=== PATIENT | male | born 1960 | race Caucasian/White ===

== ENCOUNTER 2019-11-11 08:29 | Day surgery (SDC) | payer MEDICAID ==
[~2019-11-11] VITALS: Ht 179.1 cm; Wt 81.8 kg
[2019-11-11 08:43] VITALS: BP 141/82
[2019-11-11] MEDS ORDERED: fentaNYL/PF 50MCG/1 ML 2ML syringe ONE (08:57)
[2019-11-11] MEDS ORDERED: CALC300T4 PO (08:58)
[2019-11-11] MEDS ORDERED: LIDOcaine Viscous 15ml cup ONE (08:58)
[2019-11-11] MEDS ORDERED: MIDAZolam 5mg/5ml vial ONE (08:58)
[2019-11-11] MEDS ORDERED: PROP10TA10 PO (08:59)
[2019-11-11] MEDS ORDERED: METF-438 PO (09:00)
[2019-11-11] MEDS ORDERED: PANT-47 PO (09:01)
[2019-11-11] MEDS ORDERED: CHOL400T14 PO (09:02)
[2019-11-11] MEDS ORDERED: IRON150C5 PO (09:02)
[2019-11-11] MEDS ORDERED: ONDA4TAB6 PO (09:03)
[2019-11-11 10:39] VITALS: BP 115/73
[2019-11-11 10:48] VITALS: BP 121/84
[2019-11-11 10:58] VITALS: BP 134/67
[2019-11-11 11:08] VITALS: BP 139/83
== END 2019-11-11 11:25 | disposition home or self-care (01) ==
LOC: GI LAB 08:29
PROVIDERS: ATTEND Internal Medicine Gastroenterology
DX: R12 Heartburn (principal); I85.00 Esophageal varices without bleeding; K22.719 Barrett's esophagus with dysplasia, unspecified; K44.9 Diaphragmatic hernia without obstruction or gangrene; K76.6 Portal hypertension; K31.89 Other diseases of stomach and duodenum; I86.4 Gastric varices; K22.70 Barrett's esophagus without dysplasia
CPT/HCPCS: 43239; 99152; J2250; J3010; J7040; A4620

== ENCOUNTER 2020-07-15 11:23 | Emergency (ER) | payer MEDICAID ==
[~2020-07-15] VITALS: Ht 177.8 cm; Wt 79.5 kg
[~2020-07-15 11:23] MED LIST: CALC300T4 PO; CHOL400T14 PO; IRON150C5 PO; METF-438 PO; ONDA4TAB6 PO; PANT-47 PO; PROP10TA10 PO
[2020-07-15 12:42] VITALS: BP 146/98
[2020-07-15] MEDS ORDERED: PERM60CR19 TOP (12:59)
== END 2020-07-15 13:05 | disposition home or self-care (01) ==
LOC: ER 11:24
DX: B86 Scabies (principal); Z88.8 Allergy status to other drugs, medicaments and biological substances; Z79.899 Other long term (current) drug therapy
CPT/HCPCS: 99283

== ENCOUNTER 2021-06-13 14:28 | Emergency (ER) | payer MEDICAID ==
[~2021-06-13] VITALS: Ht 177.8 cm; Wt 73.4 kg
[2021-06-13 14:37] VITALS: BP 129/71
[2021-06-13] MEDS ORDERED: CEPH-585 PO (15:24)
== END 2021-06-13 15:40 | disposition home or self-care (01) ==
LOC: ER 14:29
DX: J93.9 Pneumothorax, unspecified (principal); Z48.02 Encounter for removal of sutures; Z60.2 Problems related to living alone; Z88.6 Allergy status to analgesic agent; Z79.2 Long term (current) use of antibiotics; Z79.899 Other long term (current) drug therapy
CPT/HCPCS: 99283

== ENCOUNTER 2023-03-29 18:52 | Emergency (ER) | payer MEDICAID ==
[~2023-03-29] VITALS: Ht 177.8 cm; Wt 74.8 kg
[~2023-03-29 18:52] MED LIST changes: -CALC300T4 PO; -CHOL400T14 PO; -IRON150C5 PO; -METF-438 PO; -ONDA4TAB6 PO; -PANT-47 PO; -PROP10TA10 PO; +SULF1TAB49 PO
[2023-03-29 18:55] VITALS: BP 134/66
[2023-03-29] MEDS ORDERED: IBUP-1986 PO (20:15)
[2023-03-29] MEDS ORDERED: HYDROcodone/acetaminophen 10/325mg tab PO ONE (20:20)
[2023-03-29] MEDS ORDERED: ibuprofen tablet 400 MG TABLET PO ONE (20:20)
--- NOTE | 2023-03-29 20:44 | NUR ---
ADMISSIONS SUPERVISOR PAGED BY ELANA TOBIAS.
--- NOTE | 2023-03-29 21:10 | NUR ---
PRIMARY CARE NURSE AT BEDSIDE
== END 2023-03-29 21:26 | disposition home or self-care (01) ==
LOC: ER 18:53
DX: S93.492A Sprain of other ligament of left ankle, initial encounter (principal); M25.522 Pain in left elbow; Z88.6 Allergy status to analgesic agent; Z79.899 Other long term (current) drug therapy; X58.XXXA Exposure to other specified factors, initial encounter; Y93.89 Activity, other specified; Y92.89 Other specified places as the place of occurrence of the external cause; Y99.8 Other external cause status
CPT/HCPCS: 29515; 73080; 73610; 99284; L1930; L4360; A4565; A6449

== ENCOUNTER 2023-04-06 07:58 | Emergency (ER) | payer MEDICAID ==
[~2023-04-06] VITALS: Ht 179.1 cm; Wt 81.8 kg
[~2023-04-06 07:58] MED LIST changes: +IBUP-1986 PO
--- NOTE | 2023-04-06 08:09 | NUR ---
YAMILEX [phone]
[2023-04-06] MEDS ORDERED: normal saline 1000ML IV soln IVB ONE ×2 (09:05→09:40)
[2023-04-06] MEDS ORDERED: ondansetron/PF 4mg/2ml inj IV ONE (09:05)
[2023-04-06 09:12] LABS: BASOPHILS # (AUTO) 0.1 X10'3 (0-0.2); BASOPHILS % (AUTO) 0.5 % (0-1); EOSINOPHILS % (AUTO) 0 % (0-6); HEMATOCRIT 41.4 % (42.0-52.0); HEMOGLOBIN 14.1 g/dl (14.0-17.9); LYMPHOCYTES # (AUTO) 0.2 X10'3 (1.1-4.8); LYMPHOCYTES % (AUTO) 1.6 % (21-51); MEAN CORPUSCULAR HEMOGLOBIN 32.9 PG (27.0-31.0); MEAN CORPUSCULAR VOLUME 96.8 FL (78-98); MEAN PLATELET VOLUME 9.4 FL (7.4-10.4); MONOCYTES # (AUTO) 0.2 X10'3 (0-0.9); MONOCYTES % (AUTO) 2.2 % (2-12); NEUTROPHILS # (AUTO) 10.7 X10'3 (1.8-7.7); NEUTROPHILS % (AUTO) 95.7 % (42-75); PLATELET COUNT 108 X10'3 (140-440); RED BLOOD COUNT 4.27 X10'6 (4.70-6.10); RED CELL DISTRIBUTION WIDTH 15.3 % (11.5-14.5); WHITE BLOOD COUNT 11.2 X10'3 (4.5-11.0)
[2023-04-06 09:25] LABS: ALANINE AMINOTRANSFERASE 19 U/L (12-78); ALBUMIN 3.6 G/DL (3.4-5.0); ALKALINE PHOSPHATASE 111 IU/L (46-116); ANION GAP 11 (8-16); ASPARTATE AMINO TRANSFERASE 28 U/L (10-37); BILIRUBIN,TOTAL 1.9 MG/DL (0.1-1.0); BLOOD UREA NITROGEN 17 MG/DL (7-18); BUN/CREATININE RATIO 22.4 (10.0-20.0); CALCIUM 8.7 MG/DL (8.5-10.1); CHLORIDE 104 MMOL/L (99-107); CREATININE 0.76 MG/DL (0.60-1.10); GLUCOSE 285 MG/DL (70-104); LIPASE 83 U/L (73-393); POTASSIUM 3.6 MMOL/L (3.5-5.1); SODIUM 138 MMOL/L (135-145); TOTAL CARBON DIOXIDE 23.4 MMOL/L (24-32); TOTAL PROTEIN 7.2 G/DL (6.4-8.2); eGFR > 90 ML/MIN
[2023-04-06 10:46] LABS: CLARITY,URINE CLEAR (Clear); COLOR,URINE YELLOW (Yellow); GLUCOSE, URINE >=1000 mg/dl (Neg); KETONES,URINE NEGATIVE (Neg); LEUKOCYTE ESTERASE ,URINE NEGATIVE (Neg); NITRITES, URINE NEGATIVE (Neg); OCCULT BLOOD,URINE TRACE-INTACT (Neg); PROTEIN,URINE NEGATIVE (Neg); UROBILINOGEN,URINE 0.2 E.U/dL (0.2-1.0)
[2023-04-06 10:49] LABS: UA COLLECTION TYPE CLN CATCH MIDSTREAM
[2023-04-06 10:50] LABS: BACTERIA,URINE NONE SEEN /HPF (Neg); MUCUS STRANDS NONE SEEN /LPF (Neg); SQUAMOUS EPITHELIAL CELL,UR FEW /LPF (FEW); WBC,URINE 0-4 /HPF (0-4)
[2023-04-06] MEDS ORDERED: diphenhydrAMINE 50 mg/ml inj IV ONE (10:50)
[2023-04-06] MEDS ORDERED: proCHLORperazine 10 MG/2 ml inj IV ONE (10:50)
[2023-04-06] MEDS ORDERED: ONDA4TAB12 PO ×3 (10:54→14:22)
[2023-04-06] MEDS ORDERED: iohexol 300mg/ml 100ml inj. ONE (11:38)
[2023-04-06] MEDS ORDERED: FLO0.4C PO ×3 (13:09→14:22)
[2023-04-06 13:27] VITALS: BP 138/82
[2023-04-06] MEDS ORDERED: tamsulosin 0.4mg capsule PO SCH (21:00)
== END 2023-04-06 13:30 | disposition home or self-care (01) ==
LOC: ER 07:59
DX: K52.89 Other specified noninfective gastroenteritis and colitis (principal); N13.2 Hydronephrosis with renal and ureteral calculous obstruction; Z88.8 Allergy status to other drugs, medicaments and biological substances; Z79.899 Other long term (current) drug therapy; Z79.1 Long term (current) use of non-steroidal anti-inflammatories (NSAID)
CPT/HCPCS: 36415; 74177; 80053; 81001; 82948; 83690; 84145; 85025; 96374; 96375; 99285; J0780; J1200; J2405; J3490; J7030; Q9967

== ENCOUNTER 2023-09-08 19:30 | Inpatient (IN) | payer MEDICAID ==
[~2023-09-08] VITALS: Ht 167.6 cm; Wt 81.8 kg
[~2023-09-08 19:30] MED LIST changes: +FLO0.4C PO; +ONDA4TAB12 PO
[2023-09-08] MEDS ORDERED: piperacillin/tazo 4.5gm/100ml 100 ML IV STA (19:53)
[2023-09-08] MEDS ORDERED: acetaminophen 325mg tablet PO STA (19:53)
[2023-09-08] MEDS ORDERED: normal saline 1000ml 1,000 ML IV ONE ×2 (19:55→20:45)
[2023-09-08 20:19] LABS: BASOPHILS # (AUTO) 0.1 X10'3 (0-0.2); BASOPHILS % (AUTO) 0.3 % (0-1); EOSINOPHILS % (AUTO) 0 % (0-6); HEMATOCRIT 44.5 % (42.0-52.0); HEMOGLOBIN 15.5 g/dl (14.0-17.9); LYMPHOCYTES # (AUTO) 0.3 X10'3 (1.1-4.8); LYMPHOCYTES % (AUTO) 1.3 % (21-51); MEAN CORPUSCULAR HEMOGLOBIN 33.7 PG (27.0-31.0); MEAN CORPUSCULAR HGB CONC 34.7 g/dL (33.0-36.5); MEAN PLATELET VOLUME 9.5 FL (7.4-10.4); MONOCYTES # (AUTO) 1.2 X10'3 (0-0.9); MONOCYTES % (AUTO) 5.9 % (2-12); NEUTROPHILS # (AUTO) 18.7 X10'3 (1.8-7.7); NEUTROPHILS % (AUTO) 92.5 % (42-75); PLATELET COUNT 113 X10'3 (140-440); RED BLOOD COUNT 4.59 X10'6 (4.70-6.10); RED CELL DISTRIBUTION WIDTH 14.5 % (11.5-14.5); WHITE BLOOD COUNT 20.2 X10'3 (4.5-11.0)
[2023-09-08 20:25] LABS: ALANINE AMINOTRANSFERASE 56 U/L (12-78); ALBUMIN 3.4 G/DL (3.4-5.0); ALBUMIN/GLOBULIN RATIO 0.9 (1.1-1.5); ALKALINE PHOSPHATASE 112 IU/L (46-116); ANION GAP 13 (8-16); ASPARTATE AMINO TRANSFERASE 65 U/L (10-37); BILIRUBIN,TOTAL 1.9 MG/DL (0.1-1.0); BLOOD UREA NITROGEN 15 MG/DL (7-18); BUN/CREATININE RATIO 16.7 (10.0-20.0); CALCIUM 9.1 MG/DL (8.5-10.1); CHLORIDE 97 MMOL/L (99-107); GLUCOSE 206 MG/DL (70-104); SODIUM 129 MMOL/L (135-145); TOTAL CARBON DIOXIDE 18.7 MMOL/L (24-32); TOTAL PROTEIN 7.1 G/DL (6.4-8.2); eCRCL 76 ML/MIN; eGFR 85 ML/MIN
[2023-09-08] MEDS ORDERED: vancomycin 1,750 MG in NS 350ml IV soln IV ONE (20:30)
[2023-09-08 20:32] LABS: PRO BRAIN NATRIURETIC PEPTIDE 284 PG/ML (0-125)
[2023-09-08 20:54] LABS: PLATELET ESTIMATE DECREASED; TOTAL CELLS COUNTED 100
[2023-09-08 20:56] LABS: LARGE PLATELETS FEW
[2023-09-08] MEDS ORDERED: temazepam 15mg capsule PO PRN (21:00)
[2023-09-08] MEDS ORDERED: diphenhydrAMINE 50 mg/ml inj IV PRN (21:30)
[2023-09-08] MEDS ORDERED: magnesium hydroxide 30ml (MOM) UD suspension PO PRN (21:30)
[2023-09-08] MEDS ORDERED: acetaminophen 650mg rectal suppository RC PRN (21:30)
[2023-09-08] MEDS ORDERED: HYDROcodone/acetaminophen 5mg/325mg tablet PO PRN (21:30)
[2023-09-08] MEDS ORDERED: morphine 2 MG/ML inj. syringe IV PRN ×2 (21:30)
[2023-09-08] MEDS ORDERED: acetaminophen 325mg tablet PO PRN (21:30)
[2023-09-08] MEDS ORDERED: ipratropium/albuterol 3ml nebule NEB PRN (21:30)
[2023-09-08] MEDS ORDERED: diphenhydrAMINE 25mg capsule PO PRN (21:30)
[2023-09-08] MEDS ORDERED: mag hydrox/Alum hydrox/simeth 30ml oral suspension PO PRN (21:30)
[2023-09-08] MEDS ORDERED: ondansetron/PF 4mg/2ml inj IV PRN (21:30)
[2023-09-08] MEDS ORDERED: ondansetron 4mg rapidly disintigrating tab PO PRN (21:30)
[2023-09-08] MEDS ORDERED: bisacodyl 10mg suppository rectal RC PRN (21:30)
[2023-09-08] MEDS ORDERED: glucagon, human recombinant 1mg kit SUBCUT PRN (21:35)
[2023-09-08] MEDS ORDERED: DEXTROSE 15 GM of carb/4 tabs (each vial/BOTTLE has 4 tablets) PO PRN ×2 (21:35)
[2023-09-08] MEDS ORDERED: dextrose 50%-water 50ml dispensing syringe IV PRN ×2 (21:35)
[2023-09-08] MEDS ORDERED: MESSAGE TO PHARMACY PO ONE (21:35)
[2023-09-08] MEDS ORDERED: ringers solution, lacted 1,000 ML IV ONE (21:45)
[2023-09-08 21:52] LABS: APTT 31 SECONDS (22-32); INR 1.2 INR; PROTHROMBIN TIME 12.5 SECONDS (9.0-12.0)
[2023-09-08 22:03] VITALS: PULSE 109; RESP 24; O2SAT 99
[2023-09-08 22:04] LABS: D-DIMER 0.84 MG/L FEU (0-0.50)
[2023-09-08] MEDS: normal saline 1000ml 1,000 ML IV SCH (23:20)
[2023-09-09 00:02] LABS: HEMOGLOBIN A1C 6.2 % (4.5-6.2)
[2023-09-09 00:13] LABS: OSMOLALITY 281 MOSM/K (280-300)
[2023-09-09 00:19] LABS: C-REACTIVE PROTEIN 3.81 MG/DL (0.0-0.5); CREATINE KINASE 251 U/L (39-308); LIPASE 17 U/L (16-77); MAGNESIUM 1.2 MG/DL (1.5-2.4); PHOSPHORUS 2.4 MG/DL (2.3-4.5); PRO BRAIN NATRIURETIC PEPTIDE 408 PG/ML (0-125)
[2023-09-09 03:17] LABS: BASOPHILS # (AUTO) 0.1 X10'3 (0-0.2); BASOPHILS % (AUTO) 0.6 % (0-1); EOSINOPHILS % (AUTO) 0.1 % (0-6); HEMATOCRIT 41.3 % (42.0-52.0); HEMOGLOBIN 14.3 g/dl (14.0-17.9); LYMPHOCYTES # (AUTO) 0.4 X10'3 (1.1-4.8); LYMPHOCYTES % (AUTO) 1.9 % (21-51); MEAN CORPUSCULAR HEMOGLOBIN 33.7 PG (27.0-31.0); MEAN CORPUSCULAR HGB CONC 34.6 g/dL (33.0-36.5); MEAN CORPUSCULAR VOLUME 97.5 FL (78-98); MEAN PLATELET VOLUME 10.2 FL (7.4-10.4); MONOCYTES # (AUTO) 0.8 X10'3 (0-0.9); MONOCYTES % (AUTO) 4.5 % (2-12); NEUTROPHILS # (AUTO) 17.5 X10'3 (1.8-7.7); NEUTROPHILS % (AUTO) 92.9 % (42-75); PLATELET COUNT 105 X10'3 (140-440); RED BLOOD COUNT 4.24 X10'6 (4.70-6.10); RED CELL DISTRIBUTION WIDTH 14.5 % (11.5-14.5); WHITE BLOOD COUNT 18.9 X10'3 (4.5-11.0)
[2023-09-09 03:34] LABS: ALANINE AMINOTRANSFERASE 48 U/L (12-78); ALBUMIN 2.9 G/DL (3.4-5.0); ALBUMIN/GLOBULIN RATIO 0.9 (1.1-1.5); ALKALINE PHOSPHATASE 85 IU/L (46-116); ANION GAP 11 (8-16); ASPARTATE AMINO TRANSFERASE 55 U/L (10-37); BILIRUBIN,TOTAL 1.8 MG/DL (0.1-1.0); BLOOD UREA NITROGEN 15 MG/DL (7-18); BUN/CREATININE RATIO 14.6 (10.0-20.0); CALCIUM 8.3 MG/DL (8.5-10.1); CHLORIDE 101 MMOL/L (99-107); CHOL/HDL RATIO 1.3 (0.00-4.99); CHOLESTEROL 110 MG/DL (0-200); CREATININE 1.03 MG/DL (0.60-1.10); GLUCOSE 149 MG/DL (70-104); HDL CHOLESTEROL 83 MG/DL (35-60); LDL CHOLESTEROL 21 MG/DL (50-100); POTASSIUM 3.9 MMOL/L (3.5-5.1); SODIUM 134 MMOL/L (135-145); TOTAL CARBON DIOXIDE 22.4 MMOL/L (24-32); TOTAL PROTEIN 6.3 G/DL (6.4-8.2); TRIGLYCERIDES 33 MG/DL (20-135); eCRCL 66 ML/MIN; eGFR 73 ML/MIN
[2023-09-09 05:05] LABS: URINE AMPHETAMINE SCREEN POSITIVE (Neg); URINE BARBITUATE SCREEN NEGATIVE (Neg); URINE BENZODIAZEPINES SCREEN NEGATIVE (Neg); URINE CANNABINOID SCREEN POSITIVE (Neg); URINE COCAINE SCREEN NEGATIVE (Neg); URINE METHADONE SCREEN NEGATIVE (Neg); URINE OPIATE SCREEN NEGATIVE (Neg); URINE PHENCYCLIDINE SCREEN NEGATIVE (Neg)
[2023-09-09 05:17] LABS: BILIRUBIN,URINE NEGATIVE (Neg); CLARITY,URINE CLEAR (Clear); COLOR,URINE YELLOW (Yellow); GLUCOSE, URINE NEGATIVE (Neg); KETONES,URINE NEGATIVE (Neg); LEUKOCYTE ESTERASE ,URINE NEGATIVE (Neg); NITRITES, URINE NEGATIVE (Neg); OCCULT BLOOD,URINE TRACE-INTACT (Neg); PH,URINE 5.5 (4.8-8.0); PROTEIN,URINE NEGATIVE (Neg); UROBILINOGEN,URINE 0.2 E.U/dL (0.2-1.0)
[2023-09-09 05:22] LABS: UA COLLECTION TYPE CLN CATCH MIDSTREAM
[2023-09-09 05:24] LABS: BACTERIA,URINE NONE SEEN /HPF (Neg); MUCUS STRANDS NONE SEEN /LPF (Neg); RBC,URINE NONE SEEN /HPF (0-2); SQUAMOUS EPITHELIAL CELL,UR FEW /LPF (FEW); WBC,URINE 0-4 /HPF (0-4)
[2023-09-09] MEDS: piperacillin/tazo 4.5gm/100ml 100 ML IV SCH ×4 (05:36→20:43)
[2023-09-09] MEDS: pantoprazole 40mg Tablet.DR PO SCH (09:22)
[2023-09-09] MEDS: methylPREDNISolone sod succ 125mg/2ml vial IV SCH ×2 (09:22→20:44)
[2023-09-09] MEDS: heparin, porcine 5000 units/ml vial SQ SCH ×2 (09:27→20:45)
[2023-09-09] MEDS: docusate sod 100mg capsule PO SCH ×2 (09:27→20:00)
[2023-09-09] MEDS: normal saline 1000ml 1,000 ML IV SCH ×3 (09:28→22:25)
[2023-09-09] MEDS: vancomycin/NS 1 GM ADD-VANTAGE 250 ML IV SCH ×2 (09:28→22:22)
--- NOTE | 2023-09-09 12:56 | NUR ---
Valentin Avalos (son) [phone].
[2023-09-09 13:14] VITALS: PULSE 86; RESP 16; O2SAT 94
--- NOTE | 2023-09-09 16:40 | NUR ---
Report received from Zulema PEACOCK
[2023-09-09 17:28] VITALS: BP 112/57; PULSE 75; RESP 18; TEMP 99.2; O2SAT 97
[2023-09-09 18:00] VITALS: BP 112/46; PULSE 85; RESP 18; TEMP 99.5; O2SAT 96
--- NOTE | 2023-09-09 18:09 | NUR ---
Report given to Arelis PEACOCK
[2023-09-09 19:55] VITALS: PULSE 84; RESP 16; O2SAT 99
[2023-09-09] MEDS: insulin glargine (Lantus) pen - multi-dose SQ SCH (21:00)
[2023-09-09] MEDS: HYDROcodone/acetaminophen 10/325mg tab PO PRN (21:20)
[2023-09-09 22:00] VITALS: BP 130/72; PULSE 86; RESP 18; TEMP 99.4; O2SAT 95
--- NOTE | 2023-09-09 23:49 | NUR ---
PAGER ID: [phone] MESSAGE: [facility] [id number]. Herve Rivera. admitted for LLL cellulitis, there is now redness up into groin. Pt currently has vancomycin running, missed 2000 dose zosyn, next dose is at 0400. 2200 VS 99.4,86,18,95,130/72. please advise Arelis PEACOCK [phone]
[2023-09-10] VITALS (9 sets, daily range): BP systolic 112–147; BP diastolic 57–75; PULSE 69–92; RESP 15–18; TEMP 97.8–99.1; O2SAT 92–98
--- NOTE | 2023-09-10 00:24 | NUR ---
Provider Marissa came and looked at pt's left leg as the redness has travelled up his leg and into the groin area. Provider stated to continue to monitor redness and gave orders for stat LA and Procal labs.
--- NOTE | 2023-09-10 02:25 | NUR ---
provider paged PAGER ID: [phone] MESSAGE: [id number], Robel Rivera results of stat labs. procalcitonin went from 3.0 to 4.64 and lactic acid went from 5.1 to 2.0. Thank you, Arelis PEACOCK [phone]
[2023-09-10] MEDS: piperacillin/tazo 4.5gm/100ml 100 ML IV SCH ×3 (03:10→21:35)
--- NOTE | 2023-09-10 06:33 | NUR ---
Problems reprioritized. Patient report given, questions answered & plan of care reviewed with Alexandra PEACOCK and Ria PEACOCK. Pt stable at shift change.
[2023-09-10] MEDS: pantoprazole 40mg Tablet.DR PO SCH (07:41)
[2023-09-10] MEDS: vancomycin/NS 1 GM ADD-VANTAGE 250 ML IV SCH ×2 (07:52→21:35)
[2023-09-10] MEDS: methylPREDNISolone sod succ 125mg/2ml vial IV SCH (07:56)
[2023-09-10] MEDS: heparin, porcine 5000 units/ml vial SQ SCH ×2 (08:00→20:00)
[2023-09-10] MEDS: docusate sod 100mg capsule PO SCH (08:00)
[2023-09-10 08:46] LABS: BASOPHILS % (AUTO) 0.1 % (0-1); EOSINOPHILS % (AUTO) 0 % (0-6); HEMATOCRIT 38.3 % (42.0-52.0); HEMOGLOBIN 13.3 g/dl (14.0-17.9); LYMPHOCYTES # (AUTO) 0.5 X10'3 (1.1-4.8); LYMPHOCYTES % (AUTO) 3.6 % (21-51); MEAN CORPUSCULAR HEMOGLOBIN 33.8 PG (27.0-31.0); MEAN CORPUSCULAR HGB CONC 34.6 g/dL (33.0-36.5); MEAN CORPUSCULAR VOLUME 97.7 FL (78-98); MEAN PLATELET VOLUME 10.1 FL (7.4-10.4); MONOCYTES # (AUTO) 0.9 X10'3 (0-0.9); MONOCYTES % (AUTO) 7.2 % (2-12); NEUTROPHILS # (AUTO) 11.7 X10'3 (1.8-7.7); NEUTROPHILS % (AUTO) 89.1 % (42-75); PLATELET COUNT 87 X10'3 (140-440); RED BLOOD COUNT 3.92 X10'6 (4.70-6.10); RED CELL DISTRIBUTION WIDTH 14.6 % (11.5-14.5); WHITE BLOOD COUNT 13.1 X10'3 (4.5-11.0)
[2023-09-10 09:10] LABS: ALANINE AMINOTRANSFERASE 32 U/L (12-78); ALBUMIN 2.5 G/DL (3.4-5.0); ALBUMIN/GLOBULIN RATIO 0.7 (1.1-1.5); ALKALINE PHOSPHATASE 71 IU/L (46-116); ANION GAP 9 (8-16); ASPARTATE AMINO TRANSFERASE 35 U/L (10-37); BILIRUBIN,TOTAL 1.2 MG/DL (0.1-1.0); BLOOD UREA NITROGEN 21 MG/DL (7-18); BUN/CREATININE RATIO 23.9 (10.0-20.0); CALCIUM 8.3 MG/DL (8.5-10.1); CHLORIDE 104 MMOL/L (99-107); CREATININE 0.88 MG/DL (0.60-1.10); GLUCOSE 192 MG/DL (70-104); POTASSIUM 4.1 MMOL/L (3.5-5.1); SODIUM 136 MMOL/L (135-145); TOTAL CARBON DIOXIDE 23.1 MMOL/L (24-32); TOTAL PROTEIN 6.1 G/DL (6.4-8.2); eCRCL 78 ML/MIN; eGFR 87 ML/MIN
[2023-09-10 09:53] LABS: LARGE PLATELETS FEW; PLATELET ESTIMATE DECREASED
[2023-09-10 09:54] LABS: ANISOCYTOSIS 1+
[2023-09-10] MEDS: HYDROcodone/acetaminophen 10/325mg tab PO PRN ×2 (09:54→21:17)
[2023-09-10] MEDS: normal saline 1000ml 1,000 ML IV SCH ×2 (12:52→23:11)
--- NOTE | 2023-09-10 13:25 | NUR ---
This inspector automatic typewriter spoke with Dr. Gonzáles r/t pt's elevated procalcitonin as well as his Lactic acid. Pt's clinical presentation has improved. aware and will get back to this inspector automatic typewriter if there's a change to pt's medication or interventions.
[2023-09-10] MEDS: insulin Lispro (HumaLOG) vial - multi-dose SQ SCH ×3 (16:14→21:03)
--- NOTE | 2023-09-10 18:34 | NUR ---
Problems reprioritized. Patient report given, questions answered & plan of care reviewed with AYUSH Mercedes.
[2023-09-10] MEDS ORDERED: VANCOMYCIN LEVEL IV ONE (19:30)
[2023-09-10] MEDS: insulin glargine (Lantus) pen - multi-dose SQ SCH (21:01)
[2023-09-11 02:00] VITALS: BP 124/65; PULSE 78; RESP 16; TEMP 98.9; O2SAT 93
--- NOTE | 2023-09-11 04:00 | NUR ---
I AGREE WITH CAN TECHNICIAN'S ASSESSMENT
[2023-09-11] MEDS: piperacillin/tazo 4.5gm/100ml 100 ML IV SCH ×2 (04:07→12:00)
[2023-09-11 06:00] VITALS: BP 122/65; PULSE 80; RESP 18; TEMP 99; O2SAT 91
[2023-09-11] MEDS: pantoprazole 40mg Tablet.DR PO SCH (07:39)
[2023-09-11 08:00] VITALS: RESP 18; O2SAT 98
[2023-09-11] MEDS: heparin, porcine 5000 units/ml vial SQ SCH (08:00)
[2023-09-11 08:14] LABS: BASOPHILS % (AUTO) 0.1 % (0-1); EOSINOPHILS % (AUTO) 0.3 % (0-6); HEMATOCRIT 35.8 % (42.0-52.0); HEMOGLOBIN 12.4 g/dl (14.0-17.9); LYMPHOCYTES # (AUTO) 0.8 X10'3 (1.1-4.8); LYMPHOCYTES % (AUTO) 9.9 % (21-51); MEAN CORPUSCULAR HEMOGLOBIN 33.6 PG (27.0-31.0); MEAN CORPUSCULAR HGB CONC 34.5 g/dL (33.0-36.5); MEAN CORPUSCULAR VOLUME 97.2 FL (78-98); MEAN PLATELET VOLUME 9.6 FL (7.4-10.4); MONOCYTES # (AUTO) 1.1 X10'3 (0-0.9); NEUTROPHILS # (AUTO) 6.5 X10'3 (1.8-7.7); NEUTROPHILS % (AUTO) 76.7 % (42-75); PLATELET COUNT 84 X10'3 (140-440); RED BLOOD COUNT 3.69 X10'6 (4.70-6.10); RED CELL DISTRIBUTION WIDTH 14.7 % (11.5-14.5); WHITE BLOOD COUNT 8.4 X10'3 (4.5-11.0)
[2023-09-11] MEDS: vancomycin/NS 1 GM ADD-VANTAGE 250 ML IV SCH (08:25)
[2023-09-11 08:37] LABS: ALANINE AMINOTRANSFERASE 32 U/L (12-78); ALBUMIN 2.2 G/DL (3.4-5.0); ALBUMIN/GLOBULIN RATIO 0.6 (1.1-1.5); ALKALINE PHOSPHATASE 83 IU/L (46-116); ANION GAP 5 (8-16); ASPARTATE AMINO TRANSFERASE 24 U/L (10-37); BILIRUBIN,TOTAL 0.7 MG/DL (0.1-1.0); BLOOD UREA NITROGEN 17 MG/DL (7-18); BUN/CREATININE RATIO 24.6 (10.0-20.0); CHLORIDE 105 MMOL/L (99-107); CREATININE 0.69 MG/DL (0.60-1.10); GLUCOSE 184 MG/DL (70-104); POTASSIUM 3.5 MMOL/L (3.5-5.1); SODIUM 134 MMOL/L (135-145); TOTAL CARBON DIOXIDE 24.4 MMOL/L (24-32); TOTAL PROTEIN 5.6 G/DL (6.4-8.2); eCRCL 99 ML/MIN; eGFR > 90 ML/MIN
[2023-09-11] MEDS: normal saline 1000ml 1,000 ML IV SCH (09:30)
[2023-09-11] MEDS: insulin Lispro (HumaLOG) vial - multi-dose SQ SCH (09:57)
[2023-09-11] MEDS ORDERED: DOXY-243 PO (10:02)
[2023-09-11 11:00] VITALS: BP 125/68; PULSE 86; RESP 17; TEMP 99.1; O2SAT 95
[2023-09-11] MEDS ORDERED: ACET-1008 PO (11:39)
[2023-09-11 12:25] VITALS: PULSE 86; RESP 16; O2SAT 96
--- NOTE | 2023-09-11 14:16 | NUR ---
Pt AOX4, VSS on RA. Pt's discharge paperwork reviewed and questions answered. Pt's PIV removed with cannula intact. Pt's son Kevin picked up patient in private vehicle. Pt's discharge medications delivered by carrier to pt's bedside. Pt in NAD.
[2023-09-11] MEDS ORDERED: VANCOMYCIN 1,500MG in normal saline IV soln 300 ML IV SCH (20:00)
[2023-09-13] MEDS ORDERED: VANCOMYCIN LEVEL IV ONE (07:30)
== END 2023-09-11 14:15 | disposition home or self-care (01) | DRG 720 ==
LOC: ER 19:31 → ED HOLD 21:34 → EDBEDREQ 09-09 16:08 → PCU 3S 09-09 17:11
PROVIDERS: ADMIT Family Medicine; ATTEND Internal Medicine
DX: A41.9 Sepsis, unspecified organism (principal); E87.20 Acidosis, unspecified; D69.6 Thrombocytopenia, unspecified; E11.22 Type 2 diabetes mellitus with diabetic chronic kidney disease; J44.1 Chronic obstructive pulmonary disease with (acute) exacerbation; E87.1 Hypo-osmolality and hyponatremia; L03.116 Cellulitis of left lower limb; K21.9 Gastro-esophageal reflux disease without esophagitis; N18.9 Chronic kidney disease, unspecified; N40.0 Benign prostatic hyperplasia without lower urinary tract symptoms; K74.60 Unspecified cirrhosis of liver; Z87.891 Personal history of nicotine dependence; Z79.899 Other long term (current) drug therapy; Z88.8 Allergy status to other drugs, medicaments and biological substances; Z85.118 Personal history of other malignant neoplasm of bronchus and lung; Z87.442 Personal history of urinary calculi
CPT/HCPCS: 36415; 70450; 71045; 73700; 80053; 80061; 80202; 80305; 81001; 82140; 82550; 82948; 83036; 83605; 83690; 83735; 83880; 83930; 84100; 84145; 84484; 85007; 85008; 85025; 85379; 85610; 85651; 85730; 86140; 87040; 93306; 93971; 94760; 97161; 97530; 99285; A4349; G0378; J1644; J1815; J2270; J2543; J2930; J3370; J7030; J7040; J7120

== ENCOUNTER 2023-09-29 17:48 | Emergency (ER) | payer MEDICAID ==
[~2023-09-29] VITALS: Ht 177.8 cm; Wt 84.1 kg
[~2023-09-29 17:48] MED LIST changes: +DOXY-243 PO; -IBUP-1986 PO; -ONDA4TAB12 PO; -SULF1TAB49 PO
[2023-09-29 19:00] VITALS: PULSE 80; TEMP 97.9
[2023-09-29] MEDS ORDERED: NAPR-56 PO (19:34)
[2023-09-29 19:54] VITALS: BP 145/90; RESP 18; O2SAT 98
== END 2023-09-29 19:59 | disposition home or self-care (01) ==
LOC: ER 17:48
DX: S93.402A Sprain of unspecified ligament of left ankle, initial encounter (principal); S80.211A Abrasion, right knee, initial encounter; S80.212A Abrasion, left knee, initial encounter; R07.81 Pleurodynia; W19.XXXA Unspecified fall, initial encounter; Z91.81 History of falling; Y93.89 Activity, other specified; Y92.89 Other specified places as the place of occurrence of the external cause; Y99.8 Other external cause status
CPT/HCPCS: 71101; 73610; 99283; 99284

== ENCOUNTER 2024-03-08 20:19 | Inpatient (IN) | payer MEDICAID ==
[~2024-03-08] VITALS: Ht 177.8 cm; Wt 81.4 kg
[~2024-03-08 20:19] MED LIST changes: -DOXY-243 PO
[2024-03-08] MEDS: LIDOcaine 2% jelly 6ml syringe ***for topical use only MM ONE (21:21)
[2024-03-08] MEDS: acetaminophen 325mg tablet PO ONE (21:21)
[2024-03-08] MEDS: LidoCAINE 2% Topical Jelly 11mL syringe (UROJET) MM ONE (21:21)
[2024-03-08 21:31] LABS: BASOPHILS % (AUTO) 0.3 % (0-1); EOSINOPHILS % (AUTO) 0.1 % (0-6); HEMATOCRIT 41.1 % (42.0-52.0); HEMOGLOBIN 13.8 g/dl (14.0-17.9); LYMPHOCYTES # (AUTO) 0.4 X10'3 (1.1-4.8); MEAN CORPUSCULAR HEMOGLOBIN 32.9 PG (27.0-31.0); MEAN CORPUSCULAR HGB CONC 33.7 g/dL (33.0-36.5); MEAN CORPUSCULAR VOLUME 97.5 FL (78-98); MEAN PLATELET VOLUME 10.4 FL (7.4-10.4); MONOCYTES # (AUTO) 0.7 X10'3 (0-0.9); MONOCYTES % (AUTO) 5.7 % (2-12); NEUTROPHILS # (AUTO) 11.5 X10'3 (1.8-7.7); NEUTROPHILS % (AUTO) 90.9 % (42-75); PLATELET COUNT 75 X10'3 (140-440); RED BLOOD COUNT 4.21 X10'6 (4.70-6.10); WHITE BLOOD COUNT 12.6 X10'3 (4.5-11.0)
[2024-03-08] MEDS: CefTRIAXone 2gm/D5W 50ml BAG 50 ML IV SCH (21:32)
[2024-03-08] MEDS: acetaminophen 1,000mg/100ml IV 100 ML IV ONE (21:32)
[2024-03-08 21:41] LABS: BILIRUBIN,URINE NEGATIVE (Neg); CLARITY,URINE CLEAR (Clear); COLOR,URINE YELLOW (Yellow); GLUCOSE, URINE 500 mg/dl (Neg); KETONES,URINE TRACE mg/dl (Neg); LEUKOCYTE ESTERASE ,URINE NEGATIVE (Neg); NITRITES, URINE NEGATIVE (Neg); OCCULT BLOOD,URINE NEGATIVE (Neg); PROTEIN,URINE NEGATIVE (Neg)
[2024-03-08 21:46] LABS: UA COLLECTION TYPE FOLEY CATH
[2024-03-08 21:51] LABS: INR 1.2 INR; PROTHROMBIN TIME 12.5 SECONDS (9.0-12.0)
[2024-03-08] MEDS: normal saline 1000ML IV soln IVB ONE ×2 (21:55→22:05)
[2024-03-08 22:01] LABS: URINE AMPHETAMINE SCREEN POSITIVE (Neg); URINE BARBITUATE SCREEN NEGATIVE (Neg); URINE BENZODIAZEPINES SCREEN NEGATIVE (Neg); URINE CANNABINOID SCREEN POSITIVE (Neg); URINE COCAINE SCREEN NEGATIVE (Neg); URINE METHADONE SCREEN NEGATIVE (Neg); URINE OPIATE SCREEN NEGATIVE (Neg); URINE PHENCYCLIDINE SCREEN NEGATIVE (Neg)
[2024-03-08 22:13] LABS: ALANINE AMINOTRANSFERASE 17 U/L (12-78); ALBUMIN 3.2 G/DL (3.4-5.0); ALBUMIN/GLOBULIN RATIO 0.9 (1.1-1.5); ALKALINE PHOSPHATASE 93 IU/L (46-116); ANION GAP 9 (8-16); ASPARTATE AMINO TRANSFERASE 35 U/L (10-37); BILIRUBIN,TOTAL 1.7 MG/DL (0.1-1.0); BLOOD UREA NITROGEN 11 MG/DL (7-18); BUN/CREATININE RATIO 14.9 (10.0-20.0); CALCIUM 8.7 MG/DL (8.5-10.1); CHLORIDE 100 MMOL/L (99-107); CREATININE 0.74 MG/DL (0.60-1.10); GLUCOSE 209 MG/DL (70-104); POTASSIUM 3.7 MMOL/L (3.5-5.1); SODIUM 131 MMOL/L (135-145); TOTAL CARBON DIOXIDE 22.4 MMOL/L (24-32); TOTAL PROTEIN 6.8 G/DL (6.4-8.2); eCRCL 106 ML/MIN; eGFR > 90 ML/MIN
[2024-03-08 22:25] LABS: PRO BRAIN NATRIURETIC PEPTIDE 55 PG/ML (0-125)
[2024-03-08 22:28] LABS: ETHANOL < 10 MG/DL (<10)
[2024-03-08] MEDS ORDERED: VANCOmycin 1250MG/NS 250ml Bag 250 ML IV SCH (23:00)
[2024-03-09] MEDS ORDERED: normal saline 1000ml 1,000 ML IV SCH (00:05)
[2024-03-09] MEDS ORDERED: potassium Cl 20 mEq SR tablet PO PRN (00:05)
[2024-03-09] MEDS ORDERED: magnesium hydroxide 30ml (MOM) UD suspension PO PRN (00:05)
[2024-03-09] MEDS ORDERED: magnesium Cl slow-release 64mg tablet PO PRN (00:05)
[2024-03-09] MEDS ORDERED: magnesium 4gm in 100ml NS 100 ML IV PRN (00:05)
[2024-03-09] MEDS ORDERED: acetaminophen 325mg tablet PO PRN ×2 (00:05)
[2024-03-09] MEDS ORDERED: magnesium 2GM in 50ml NS 50 ML IV PRN (00:05)
[2024-03-09] MEDS ORDERED: mag hydrox/Alum hydrox/simeth 30ml oral suspension PO PRN (00:05)
[2024-03-09] MEDS ORDERED: acetaminophen 650mg rectal suppository RC PRN (00:05)
[2024-03-09] MEDS ORDERED: potassium Cl 40MEQ/1/2NS 520ml 520 ML IV PRN (00:05)
[2024-03-09] MEDS: VANCOmycin 1250MG/NS 250ml Bag 250 ML IV ONE (00:17)
[2024-03-09] MEDS: normal saline 1000ml 1,000 ML IV SCH (03:51)
[2024-03-09] MEDS: acetaminophen 1,000mg/100ml IV 100 ML IV ONE (03:52)
[2024-03-09] MEDS: morphine 2 MG/ML inj. syringe IV PRN (05:15)
[2024-03-09] MEDS: ondansetron/PF 4mg/2ml inj IV PRN (05:16)
[2024-03-09] MEDS: enoxaparin 30mg/0.3ml syringe SQ SCH (08:00)
[2024-03-09] MEDS ORDERED: CefTRIAXone/D5W-Rocephin 1gm 50 ML IV SCH (08:00)
[2024-03-09] MEDS: K and/or MAG REPLACEMENT MC SCH (08:00)
[2024-03-09] MEDS: docusate sod 100mg capsule PO SCH (08:00)
[2024-03-09 08:33] VITALS: BP 91/44; PULSE 66; RESP 18; TEMP 98.4; O2SAT 93
[2024-03-09] MEDS: piperacillin/tazo 3.375gm/50ml 50 ML IV SCH (10:19)
[2024-03-09 10:48] VITALS: BP 99/47; PULSE 74; RESP 20; TEMP 98.2; O2SAT 97
[2024-03-09 11:05] LABS: CHOL/HDL RATIO 1.4 (0.00-4.99); CHOLESTEROL 103 MG/DL (0-200); HDL CHOLESTEROL 72 MG/DL (35-60); LDL CHOLESTEROL 31 MG/DL (50-100); MAGNESIUM 1.5 MG/DL (1.5-2.4); POTASSIUM 3.3 MMOL/L (3.5-5.1); THYROID STIMULATING HORMONE 0.86 ulU/ml (0.34-4.50); TRIGLYCERIDES 32 MG/DL (20-135)
[2024-03-09 11:06] LABS: HEMOGLOBIN A1C 6.5 % (4.5-6.2)
[2024-03-09] MEDS ORDERED: VANCOmycin 1250MG/NS 250ml Bag 250 ML IV SCH (12:00)
[2024-03-09] MEDS: VANCOmycin 1250MG/NS 250ml Bag 250 ML IV SCH (13:25)
[2024-03-09] MEDS ORDERED: NO HOME MEDS (15:40)
[2024-03-09 18:00] VITALS: BP 122/74; PULSE 71; RESP 18; TEMP 98.2; O2SAT 97
[2024-03-09] MEDS: potassium Cl 20 mEq SR tablet PO PRN (19:11)
[2024-03-09 19:21] VITALS: RESP 16; O2SAT 97
[2024-03-09 22:00] VITALS: BP 128/71; PULSE 74; RESP 20; TEMP 98.1; O2SAT 99
[2024-03-10 02:00] VITALS: BP 131/76; PULSE 74; RESP 18; TEMP 98.3; O2SAT 99
[2024-03-10 07:38] LABS: BASOPHILS % (AUTO) 0.6 % (0-1); EOSINOPHILS # (AUTO) 0.2 X10'3 (0-0.9); HEMATOCRIT 39.5 % (42.0-52.0); HEMOGLOBIN 13.5 g/dl (14.0-17.9); LYMPHOCYTES # (AUTO) 0.9 X10'3 (1.1-4.8); LYMPHOCYTES % (AUTO) 17.2 % (21-51); MEAN CORPUSCULAR HEMOGLOBIN 33.5 PG (27.0-31.0); MEAN CORPUSCULAR HGB CONC 34.1 g/dL (33.0-36.5); MEAN CORPUSCULAR VOLUME 98.2 FL (78-98); MONOCYTES # (AUTO) 1.1 X10'3 (0-0.9); MONOCYTES % (AUTO) 19.4 % (2-12); NEUTROPHILS # (AUTO) 3.2 X10'3 (1.8-7.7); NEUTROPHILS % (AUTO) 58.8 % (42-75); PLATELET COUNT 78 X10'3 (140-440); RED BLOOD COUNT 4.02 X10'6 (4.70-6.10); RED CELL DISTRIBUTION WIDTH 14.9 % (11.5-14.5); WHITE BLOOD COUNT 5.5 X10'3 (4.5-11.0)
[2024-03-10 08:00] VITALS: RESP 18; O2SAT 95
[2024-03-10 08:07] LABS: ALANINE AMINOTRANSFERASE 16 U/L (12-78); ALBUMIN 2.6 G/DL (3.4-5.0); ALBUMIN/GLOBULIN RATIO 0.7 (1.1-1.5); ALKALINE PHOSPHATASE 75 IU/L (46-116); ANION GAP 3 (8-16); ASPARTATE AMINO TRANSFERASE 21 U/L (10-37); BILIRUBIN,TOTAL 0.9 MG/DL (0.1-1.0); BLOOD UREA NITROGEN 9 MG/DL (7-18); CALCIUM 7.9 MG/DL (8.5-10.1); CHLORIDE 108 MMOL/L (99-107); CREATININE 0.53 MG/DL (0.60-1.10); GLUCOSE 126 MG/DL (70-104); MAGNESIUM 1.6 MG/DL (1.5-2.4); POTASSIUM 4.2 MMOL/L (3.5-5.1); SODIUM 137 MMOL/L (135-145); TOTAL CARBON DIOXIDE 25.7 MMOL/L (24-32); TOTAL PROTEIN 6.2 G/DL (6.4-8.2); eCRCL 147 ML/MIN; eGFR > 90 ML/MIN
[2024-03-10 08:13] LABS: PLATELET ESTIMATE DECREASED; TOTAL CELLS COUNTED 100
[2024-03-10 08:14] LABS: BURR CELLS 1+
[2024-03-10 10:00] VITALS: BP 110/58; PULSE 82; RESP 18; TEMP 98.1; O2SAT 95
[2024-03-10] MEDS ORDERED: VANCOMYCIN LEVEL IV ONE (11:30)
[2024-03-10] MEDS ORDERED: VANCOMYCIN 1,500MG in NS 300ml IVPB IV SCH (13:00)
[2024-03-11] MEDS ORDERED: VANCOMYCIN LEVEL IV ONE (12:30)
== END 2024-03-10 13:14 | disposition left against medical advice (07) | DRG 720 ==
LOC: ER 20:19 → ED HOLD 03-09 00:29 → ORTHO 4S 03-09 08:02
PROVIDERS: ADMIT Internal Medicine Critical Care Medicine; ATTEND Family Medicine
DX: A41.9 Sepsis, unspecified organism (principal); G93.41 Metabolic encephalopathy; E87.0 Hyperosmolality and hypernatremia; E88.09 Other disorders of plasma-protein metabolism, not elsewhere classified; F15.10 Other stimulant abuse, uncomplicated; R65.20 Severe sepsis without septic shock; Z88.0 Allergy status to penicillin; E87.6 Hypokalemia; E80.6 Other disorders of bilirubin metabolism
CPT/HCPCS: 36415; 70450; 71045; 80053; 80061; 80202; 80305; 80320; 81003; 83036; 83605; 83735; 83880; 84132; 84145; 84443; 84484; 85007; 85025; 85610; 87040; 87077; 87186; 87811; 93005; 93306; 96365; 96367; 97161; 97530; 99285; A5200; A6258; C1758; G0378; J0131; J0696; J2270; J2405; J2543; J3370; J7030; J7040